=== PATIENT | female | born 1975 | race Hispanic/Latino ===

== ENCOUNTER 2019-05-15 17:07 | Emergency (ER) | payer BC ==
[~2019-05-15] VITALS: Ht 154.9 cm; Wt 78.5 kg
--- OUTSIDE RECORDS SUMMARY | 2019-05-15 17:09 | XMS REPORT | Clinical Summary ---
Author Author [facility] Address Unknown Phone Unavailable Care Team Providers Care Neon Tube Pumper Name Role Phone Samy Lernerele JESICA PCP Allergies No Known Allergies Medications End Date Status Medication Sig Dispensed Refills Start Date Active metaxalone (SKELAXIN) 400 Take 1 tablet 12 tablet 0 mg tablet (400 mg 8 total) by mouth every 8 (eight) hours as needed (muscle spasms). Active ondansetron ODT (ZOFRAN Take 1 tablet 6 tablet 0 ODT) 4 MG disintegrating (4 mg total) 8 tablet by mouth every 8 (eight) hours as needed for nausea or vomiting. Active atenolol (TENORMIN) 100 Take 100 mg 0 MG tablet by mouth daily. Active calcitonin, salmon, One spray 3.7 mL 0 (MIACALCIN) 200 each day, 8 unit/actuation nasal alternating spray nostril 09/10/2018 Discontinued HYDROcodone-acetaminophen Take 1 tablet 12 tablet 0 (NORCO) 5-325 mg per by mouth 8 tablet every 6 (six) hours as needed for moderate pain or severe pain for up to 3 days. Max Daily Amount: 4 tablets 09/24/2018 HYDROcodone-acetaminophen 1 every 4-6 h 40 tablet 0 (NORCO) 10-325 mg per prn pain 8 tablet [id number] 10/08/2018 traMADol (ULTRAM) 50 mg 1 every 4-6 h 40 tablet 0 tablet prn pain 8 11/03/2018 nitrofurantoin, Take 1 10 capsule 0 macrocrystal-monohydrate, capsule (100 9 (MACROBID) 100 MG mg total) by capsuleIndications: Acute mouth 2 (two) cystitis without times a day hematuria for 5 days. 11/28/2018 ibuprofen (ADVIL,MOTRIN) Take 1 tablet 60 tablet 0 800 MG tabletIndications: (800 mg 9 Right-sided low back pain total) by without sciatica, mouth every 6 unspecified chronicity (six) hours as needed for mild pain or moderate pain for up to 30 days. Active Problems Problem Noted Date Acute cystitis without hematuria 10/29/2018 Last Assessment & Plan: UA done and +large leuks and Nitrates Begin Abx as directed. Increase fluids 1-2L, wipe from front to back, avoid holding urine, and urinate before and after intercourse. If new onset of fever, chills, flank pain, N/V, unable to keep anything down needs to go to ER. Right-sided low back pain without sciatica 10/29/2018 Last Assessment & Plan: Natural history and expected course discussed. Questions answered. Educational material distributed. Proper lifting, bending technique discussed. Stretching exercises discussed. Ice to affected area as needed for local pain relief. Heat to affected area as needed for local pain relief. NSAIDs per medication orders. Muscle relaxants per medication orders. Follow-up in 4 weeks if the pain persists Closed fracture of twelfth thoracic vertebra 09/10/2018 Encounters Care Team Description Date Type Specialty Yonathan Lerner APRN Acute cystitis without hematuria (Primary Dx); Right-sided low back pain without sciatica, unspecified chronicity 10/29/2018 Office Visit Family Medicine Jersey Bailey III, MD Closed wedge compression fracture of twelfth thoracic vertebra with routine healing, subsequent encounter (Primary Dx) 09/24/2018 Office Visit Orthopedic Surgery Jersey Bailey III, MD Closed fracture of twelfth thoracic vertebra, unspecified fracture morphology, initial encounter (HCC) (Primary Dx) 09/10/2018 Office Visit Orthopedic Surgery Stefan Cross MD Closed wedge compression fracture of twelfth thoracic vertebra, initial encounter (HCC) (Primary Dx); Fall through floor, initial encounter; Acute midline low back pain without sciatica 09/09/2018 Emergency Emergency Medicine after 05/14/2018 Family History Medical History Relation Name Comments Cancer Mother brain tumor Relation Name Status Comments Father Alive Mother Alive Social History Date Tobacco Use Types Packs/Day Years Used Never Smoker Smokeless Tobacco: Never Used Alcohol Use Drinks/Week oz/Week Comments No Alcohol Habits Answer Date Recorded How often do you have a drink containing alcohol? Never 09/09/2018 How many drinks containing alcohol do you have on Not asked a typical day when you are drinking? How often do you have six or more drinks on one Not asked occasion? Sex Assigned at Date Recorded Not on file Industry Job Start Date Occupation Not on file Not on file Not on file Travel End Travel History Travel Start No recent travel history available. Last Filed Vital Signs Time Taken Vital Sign Reading 10/29/2018 1:28 PM [facility]CTURES [facility]OR Blood Pressure 133/82 10/29/2018 1:28 PM PICTURES EDITOR Pulse 53 10/29/2018 1:28 PM [facility]CTURES EDITOR Temperature 37.1 C (98.8 F) 09/09/2018 1:15 PM PICTURES EDITOR Respiratory Rate 16 10/29/2018 1:28 PM PICTURES EDITOR Oxygen Saturation 98% - Inhaled Oxygen - Concentration 10/29/2018 1:28 PM PICTURES EDITOR Weight 76.2 kg (168 lb) 10/29/2018 1:28 PM PICTURES EDITOR Height 154.9 cm (5' 1") 10/29/2018 1:28 PM [facility]CTURES EDITOR Body Mass Index 31.74 Plan of Treatment Health Maintenance Due Date Last Done Comments INFLUENZA VACCINE 05/14/2019 Procedures Comments Procedure Name Priority Date/Time Associated Diagnosis URINE CULTURE Routine 10/29/2018 Right-sided low back pain 2:24 PM PICTURES EDITOR without sciatica, unspecified chronicity POC URINALYSIS DIPSTICK Routine 10/29/2018 Right-sided low back pain 1:42 PM PICTURES EDITOR without sciatica, unspecified chronicity CT THORACIC SPINE WO STAT 09/09/2018 CONTRAST 1:[address] LUMBAR SPINE WO STAT 09/09/2018 CONTRAST 1:00 PM PICTURES EDITOR HCG QUALITATIVE, URINE Routine 09/09/2018 SCREEN 12:20 PM PICTURES EDITOR after 05/14/2018 Results * Urine culture (10/29/2018 2:24 PM PICTURES EDITOR) Urine culture SEE NOTE (A) [facility] Comment: DIAGNOSTICS CULTURE, URINE, ROUTINE [facility] MICRO NUMBER:[id number] TEST STATUS: FINAL SPECIMEN SOURCE: URINE SPECIMEN QUALITY:ADEQUATE RESULT: Greater than 100,000 CFU/mL of Escherichia coli E.coli -------- -------- INT JD AMOX/CLAVULANATE I 16 AMPICILLIN R >=32 AMP/SULBACTAM R >=32 CEFAZOLIN NR<=4 2 CEFEPIME S <=1 CEFTRIAXONE S <=1 CIPROFLOXACIN S <=0.25 GENTAMICIN S <=1 IMIPENEM S <=0.25 LEVOFLOXACIN S 1 NITROFURANTOIN S <=16 PIP/TAZOBACTAM S 8 TOBRAMYCIN S <=1 TRIMETHOPRIM/SULFA R >=320 S=SusceptibleI=Intermediat eR=Resistant*=Not Tested NR=Not ReportedNN=See Therapy Comments THERAPY COMMENTS Note 1: For infections other than uncomplicated UTI caused by E. coli, K. pneumoniae or P. mirabilis: Cefazolin is resistant if JD > or=8 mcg/mL. (Distinguishing susceptible versus intermediate for isolates with JD < or=4 mcg/mL requires additional testing.) Note 2: For uncomplicated UTI caused by E. coli, K. pneumoniae or P. mirabilis: Cefazolin is susceptible if JD <32 mcg/mL and predicts susceptible to the oral agents cefaclor, cefdinir, cefpodoxime, cefprozil, cefuroxime, cephalexin and loracarbef. Specimen Urine Resulting Agency Comment Performing Organization Information: Site ID: [id number] Name: [facility] Address: [address] [place] [id number] Director: Ayesha Brink Performing Organization Address City/State/[place]code [place] [address] * POC urinalysis dipstick (10/29/2018 1:42 PM PICTURES EDITOR) Color urine, Yellow POC Clarity urine, Clear POC Glucose urine, Negative Negative POC Bilirubin Negative Negative urine, POC Ketones urine, Negative Negative POC Specific 1.015 1.005 - 1.030 gravity urine, POC Blood urine, Negative Negative POC pH urine, POC 6.0 5.0, 5.5, 6.0, 6.5, 7.0, 7.5, 8.0, 8.5 Protein urine, Negative Negative POC Urobilinogen <2.0 <2.0 urine, POC Nitrite urine, Positive (A) Negative POC Leukocyte Large (A) Negative esterase urine, POC Specimen Urine * CT Thoracic Spine Wo Contrast (09/09/2018 1:09 PM PICTURES EDITOR) Specimen Narrative Performed At EXAMINATION: CT THORACIC SPINE WO CONTRAST [facility] CLINICAL HISTORY:back pain after fall Technique: Contiguous thin section axial images were obtained of the thoracic spine.Sagittal and coronal reformatted images were generated. Images were reviewed in soft-tissue and bone detail. . CT imaging was performed with iterative reconstruction technique and/or automated exposure control to reduce radiation dose. Comparison: None. Findings: Anatomic alignment of the thoracic spine. There is mild T12 anterior superior compression deformity/fracture with minimal posterior superior retropulsion. No significant associated canal stenosis or neural foraminal narrowing appreciated. No significant spondylotic change of the thoracic spine. No significant thoracic spinal canal or neural foraminal stenosis. Minimal T4 superior endplate cavity. The superior left renal pole appears atrophic, the inferior left kidney is not completely visualized, clinically correlate. Impression: Mild T12 anterior superior endplate compression fracture with minimal posterior superior retropulsion and no significant associated canal stenosis. Minimal T4 superior endplate cavity. [id number] Procedure Note Interface, Radiology Results Incoming - 09/09/2018 1:27 PM PICTURES EDITOR EXAMINATION: CT THORACIC SPINE WO CONTRAST CLINICAL HISTORY: back pain after fall Technique: Contiguous thin section axial images were obtained of the thoracic spine. Sagittal and coronal reformatted images were generated. Images were reviewed in soft-tissue and bone detail. . CT imaging was performed with iterative reconstruction technique and/or automated exposure control to reduce radiation dose. Comparison: None. Findings: Anatomic alignment of the thoracic spine. There is mild T12 anterior superior compression deformity/fracture with minimal posterior superior retropulsion. No significant associated canal stenosis or neural foraminal narrowing appreciated. No significant spondylotic change of the thoracic spine. No significant thoracic spinal canal or neural foraminal stenosis. Minimal T4 superior endplate cavity. The superior left renal pole appears atrophic, the inferior left kidney is not completely visualized, clinically correlate. Impression: Mild T12 anterior superior endplate compression fracture with minimal posterior superior retropulsion and no significant associated canal stenosis. Minimal T4 superior endplate cavity. [id number] Performing Organization Address City/State/Zipcode Phone Number [facility] [address] [place] [address] * CT Lumbar Spine Wo Contrast (09/09/2018 1:00 PM PICTURES EDITOR) Specimen Narrative Performed At EXAMINATION: CT LUMBAR SPINE WO CONTRAST [facility] CLINICAL HISTORY: back pain after fall COMPARISON:None TECHNIQUE: Axial noncontrast enhanced images of lumbar spine was performed with coronal sagittal reconstruction algorithms. CT imaging was performed with iterative reconstruction technique and/or automated exposure control to reduce radiation dose. FINDINGS: There are 5 non-rib bearing lumbar type vertebrae. There is a mild compression fracture of the superior endplate of T12 with approximately 20% vertebral body height loss, with no retropulsion of fracture fragments, with mild surrounding edema, acute or subacute in age. No subluxation. No suspicious osseous lesions. Evaluation of the visualized soft tissues demonstrates no mass, adenopathy or aneurysm. Axial images through the disc spaces demonstrate the following: L1-L2: No significant posterior disc disease, spinal canal, subarticular zone, or neural foraminal stenosis. L2-L3: No significant posterior disc disease, spinal canal, subarticular zone, or neural foraminal stenosis. L3-L4: No significant posterior disc disease, spinal canal, subarticular zone, or neural foraminal stenosis. L4-L5: Small disc bulge without significant spinal canal, subarticular zone, or neural foraminal stenosis. L5-S1: Prominence of epidural fat contributes to mild narrowing of the thecal sac. Moderate disc height loss with mild endplate sclerosis and small endplate osteophytes, which contributes to mild right neural foraminal stenosis, without significant spinal canal, subarticular zone, or left neural foraminal stenosis. IMPRESSION: 1. Mild acute or subacute compression fracture of the superior endplate of T12 with minimal surrounding edema. No retropulsion of fracture fragments. 2. Mild degenerative changes at L5-S1 as above. [facility]-[id number] Procedure Note Interface, Radiology Results Incoming - 09/09/2018 1:24 PM PICTURES EDITOR EXAMINATION: CT LUMBAR SPINE WO CONTRAST CLINICAL HISTORY: back pain after fall COMPARISON: None TECHNIQUE: Axial noncontrast enhanced images of lumbar spine was performed with coronal sagittal reconstruction algorithms. CT imaging was performed with iterative reconstruction technique and/or automated exposure control to reduce radiation dose. FINDINGS: There are 5 non-rib bearing lumbar type vertebrae. There is a mild compression fracture of the superior endplate of T12 with approximately 20% vertebral body height loss, with no retropulsion of fracture fragments, with mild surrounding edema, acute or subacute in age. No subluxation. No suspicious osseous lesions. Evaluation of the visualized soft tissues demonstrates no mass, adenopathy or aneurysm. Axial images through the disc spaces demonstrate the following: L1-L2: No significant posterior disc disease, spinal canal, subarticular zone, or neural foraminal stenosis. L2-L3: No significant posterior disc disease, spinal canal, subarticular zone, or neural foraminal stenosis. L3-L4: No significant posterior disc disease, spinal canal, subarticular zone, or neural foraminal stenosis. L4-L5: Small disc bulge without significant spinal canal, subarticular zone, or neural foraminal stenosis. L5-S1: Prominence of epidural fat contributes to mild narrowing of the thecal sac. Moderate disc height loss with mild endplate sclerosis and small endplate osteophytes, which contributes to mild right neural foraminal stenosis, without significant spinal canal, subarticular zone, or left neural foraminal stenosis. IMPRESSION: 1. Mild acute or subacute compression fracture of the superior endplate of T12 with minimal surrounding edema. No retropulsion of fracture fragments. 2. Mild degenerative changes at L5-S1 as above. [facility]-[id number] Performing Organization Address City/[facility]/Zipcode Phone Number [facility] [address] [place] [address] * hCG qualitative, urine screen (09/09/2018 12:20 PM PICTURES EDITOR) hCG NegativeComment: Sensitivity Negative [facility] qualitative, of HCG test: 25 mIU/ml [facility] Specimen Urine Performing Organization Address City/State/Zipcode Phone Number [facility] [address] [place] [address] PATHOLOGY AND GENOMIC MEDICINE [facility] [id number] [facility] [address] [place] [address] [facility] after 05/14/2018 Insurance Type Payer Benefit Subscriber ID Effective Phone Address Plan / Dates Group TPL TPL TPL-MED-DA xxxxxxxxxx 2018 TA -Present PPO BCBS BCBS OUT xxxxxxxxxxxx 2008- OF STATE Present Liability Advance Directives Patient has advance care planning documents on file. For more information, niecy e contact: Henry Lyons [address] [place] [phone]
[2019-05-15] MEDS ORDERED: DEXAMETHASONE 10MG/ML PF INJ ONE (18:28)
[2019-05-15] MEDS ORDERED: DEXAMETHASONE SOD PHOS 10 MG/1 ML VIAL IM ONE (18:30)
== END 2019-05-15 18:34 | disposition home or self-care (01) ==
LOC: FSED 17:07
DX: L03.116 Cellulitis of left lower limb (principal)
CPT/HCPCS: 99283